=== PATIENT | male | born 1955 | race Caucasian/White ===

== ENCOUNTER 2016-07-01 10:28 | Emergency (ER) | payer SELFPAY ==
--- NOTE | 2016-07-01 12:13 | ERRECORD ---
[facility] EMERGENCY RECORD HPI ABSCESS (10:51 JROB) CHIEF COMPLAINT: Patient presents for evaluation of drainage from wound. HISTORIAN: History provided by patient, 61 year old male with history of intermittent "boil" on his upper back presents with recurrence of boil. In shower this morning he squeezed out pus, concerned about surrounding redness. LOCATION: Symptoms are localized, most severe to upper back. TIME COURSE: Gradual onset of symptoms, Symptoms are improving. ASSOCIATED WITH: No associated chills, Associated with drainage, No associated fever, No associated nausea. EXACERBATED BY: Patient's condition exacerbated by nothing. RELIEVED BY: Patient's condition relieved by squeezing. ROS (10:52 JROB) CONSTITUTIONAL: Historian denies chills, denies fever. ENT: Historian denies sore throat. CARDIOVASCULAR: Historian denies chest pain, denies syncope. RESPIRATORY: Historian denies shortness of breath. GI: Historian denies nausea, denies vomiting. MUSCULOSKELETAL: Historian denies myalgias. SKIN: Historian reports cellulitis. NEUROLOGIC: Historian denies headache, intermittent numbness in shoulders. HEMO/LYMPHATIC: Historian denies abnormal blood clotting. ALLERGIC/IMMUNOLOGIC: Historian denies frequent infections. PSYCHIATRIC: Historian denies alcohol abuse. NOTES: All systems reviewed, negative except as described above. PAST MEDICAL HISTORY MEDICAL HISTORY: Past medical history includes history of hypertension. (10:37 MCBE) MALE SURGICAL HISTORY: Surgical history of appendectomy. (10:37 MCBE) PSYCHIATRIC HISTORY: Psychiatric history includes. (10:37 MCBE) SOCIAL HISTORY: Patient drinks socially, Patient denies drug use, Patient has no smoking history. (10:37 MCBE) NOTES: Nursing records reviewed, Agree with nursing records, Medication list reviewed. (10:54 JROB) KNOWN ALLERGIES No Known Drug Allergies CURRENT MEDICATIONS No recorded medications VITAL SIGNS (10:38 MCBE) VITAL SIGNS: BP: 149/71, Pulse: 68, Resp: 20, Temp: 99.2 (Oral), Pain: 0, O2 sat: 98 on Room Air, Time: 07/01/2016 10:38. &a-1R&a+25V*p+0X*[id number]*c202B*c15G*c2P*p-0X&a-25V&a+1R Name: Johny Correa JR : 1955 M61 MedRec: [id number] AcctNum: [id number] Prepared: Damari Jul 01, 2016 11:11 by Interface Page 1 of 3 D [facility] EMERGENCY RECORD PHYSICAL EXAM (10:53 JROB) CONSTITUTIONAL: Patient afebrile, Pulse normal, Blood pressure, hypertensive, borderline, Patient alert and oriented to person, place and time. HEAD: Head exam normal, Head exam included findings of head atraumatic. EYES: Pupils equally round and reactive to light, Extraocular muscles intact. ENT: Pharynx exam normal, Mouth exam normal. NECK: Neck exam normal, no cervical adenopathy. RESPIRATORY CHEST: Breath sounds clear, No wheezing, No rales, No rhonchi. CARDIOVASCULAR: Cardiovascular assessment normal, Cardiovascular exam included findings of heart rate regular rate and rhythm, Heart sounds normal. BACK: left upper back - small abscess, drained, with mild surrounding cellulitis, no remaining purulence. UPPER EXTREMITY: Upper extremity exam normal, Upper extremity exam included findings of inspection normal, Motor strength normal, Sensation intact. LOWER EXTREMITY: Lower extremity exam normal, Lower extremity exam included findings of inspection normal, Motor strength normal, Sensation intact. NEURO: Neuro exam findings include patient oriented to person, place and time, no focal motor deficits, no focal sensory deficits. SKIN: no rash. DOCTOR NOTES (10:56 JROB) TEXT: Abscess already drained, mild surrounding cellulitis. Will d/c home with Bactrim to follow up in clinic. Patient asked about intermittent numbness in shoulders, worried that might be related to the abscess. Explained that those symptoms may bar related to intermittent nerve compression, unlikely radiculopathy. PATIENT STATUS: Patient has improved since arrival to emergency department. PATIENT PLAN: The patient will be discharged, The patient will follow up with primary care physician. PROBLEM LIST No recorded problems DIAGNOSIS DIFFERENTIAL: Based on history, exam and ancillary studies if indicated: Impression: cutaneous abscess, Impression: cellulitis, Impression: regional adenitis or lymphangitis, Diagnoses considered are not limited to those documented above. (10:58 JROB) FINAL: PRIMARY: Abscess of Upper Back. (11:00 JROB) &a-1R&a+25V*p+0X*[id number]*c202B*c15G*c2P*p-0X&a-25V&a+1R Name: Johny Correa JR : 1955 M61 MedRec: [id number] AcctNum: [id number] Prepared: Damari Jul 01, 2016 11:11 by Interface Page 2 of 3 pMD [facility] EMERGENCY RECORD PRESCRIPTION (10:58 JROB) Bactrim DS: TABLET : 800 mg-160 mg : ORAL : Quantity: 1 Unit: tab(s) Route: ORAL Schedule: 2 times a day Dispense: 1 Unit: tab(s) May substitute. Refills: No Refills . NOTES: No Refills. DISPOSITION PATIENT: Disposition Type: Discharge, Disposition: *Discharge Home. (11:00 JROB) Patient left the department. (11:04 MCBE) [place]: JROB=MD York Joseph MCBE=Eulalia Carranza &a-1R&a+25V*p+0X*[id number]*c202B*c15G*c2P*p-0X&a-25V&a+1R Name: Johny Correa : 1955 M61 MedRec: [id number] AcctNum: [id number] Prepared: Damari Jul 01, 2016 11:11 by Interface Page 3 of 3 pMD MTDD
--- NOTE | 2016-07-01 12:14 | PICIS ---
[facility] EMERGENCY RECORD TRIAGE ([place] Jul 01, 2016 10:35 MCBE) TRIAGE NOTES: boil on back. chronic. patient reports the infection comes and goes. (SatJul 01, 2016 10:35 MCBE) PATIENT: AGE: 61, GENDER: male, : Sat1955, TIME OF GREET: SatJul 01, 2016 10:29, ECODE BILLING MAP: [facility], Zip Code: [address], KG WEIGHT: 81.65, PHONE: , , , PERSON ID: [id number], PCP: Tisha Dowling /Shama. ([place] Jul 01, 2016 10:35 MCBE) NAME: Johny Correa JRSilvina (10:40) COMPLAINT: PAINFUL SPOT ON BACK. ([place] Jul 01, 2016 10:35 MCBE) ADMISSION: URGENCY: 4 Non Urgent, ADMISSION SOURCE: Home, TRANSPORT: CAR, BED: ER -04. ([place] Jul 01, 2016 10:35 MCBE) IMMUNIZATIONS: Flu vaccine up to date, Tetanus immunization up to date. (10:37 MCBE) SIRS SCORING: Heart Rate 55-109 (0), Temp range 96.8-101.1 (0), respiratory rate 12-24 (0), Mental Status altered: no (0), Infection or Suspected Infection: No. (10:37 MCBE) TRIAGE SCREENING: Patient denies suicidal ideation, Patient denies presence of domestic violence. (10:37 MCBE) PROVIDERS: TRIAGE NURSE: Eulalia Carranza. ([place] Jul 01, 2016 10:35 MCBE) KNOWN ALLERGIES No Known Drug Allergies CURRENT MEDICATIONS No recorded medications VITAL SIGNS (10:38 MCBE) VITAL SIGNS: BP: 149/71, Pulse: 68, Resp: 20, Temp: 99.2 (Oral), Pain: 0, O2 sat: 98 on Room Air, Time: 07/01/2016 10:38. NURSING ASSESSMENT: SKIN (10:35 MCBE) SKIN: Skin assessment findings include skin warm, Skin dry, Skin normal in color, Inspection findings include: No pressure ulcer to the shoulder, Inspection findings include no pressure ulcer to the elbow, Inspection findings include no pressure ulcers to the hip, Inspection findings include no pressure ulcer to the sacrum, Inspection findings include no pressure ulcer to the heel, Inspection findings include no pressure ulcer, Inspection findings include no pressure ulcer, Inspection findings include redness, to left upper back, Inspection findings include signs of infection, to left upper back, Notes: no drainage at this time. NURSING PROCEDURE: DISCHARGE NOTE (11:04 MCBE) DISCHARGE: Patient discharged to home, ambulating without assistance, driving self, accompanied by //partner, Summary of Care printed/ provided, Discharge instructions given to &a-1R&a+25V*p+0X*[id number]*c202B*c15G*c2P*p-0X&a-25V&a+1R Name: Johny Correa JR : 1955 M61 MedRec: [id number] AcctNum: [id number] Prepared: Damari Jul 01, 2016 11:17 by Interface Page 1 of 4 pMD [facility] EMERGENCY RECORD patient, Simple or moderate discharge teaching performed, by EULALIA NICOLAS, EXPLAINED DISCHARGE INSTRUCTIONS. INSTRUCTED TO RETURN IF S/S WORSEN. INSTRUCTED TO COMPLETE ALL ANITBIOTICS. INFORMED PATIENT PRESCRIPTION CAN BE FILLED AT ANY PHARMACY, Prescriptions given and instructions on side effects given, Name of prescription(s) given: bactrim, Above person(s) verbalized understanding of discharge instructions and follow-up care, Patient treated and evaluated by physician. BELONGINGS: Belongings and valuables with patient upon arrival to the Emergency Department include:, Belongings and valuables with patient at time of discharge include:, belt, boots, pants, shirt, socks, wallet, Belongings remain with patient, Valuables remain with patient, Notes: patient took bag of home medications with him home. HPI ABSCESS (10:51 JROB) CHIEF COMPLAINT: Patient presents for evaluation of drainage from wound. HISTORIAN: History provided by patient, 61 year old male with history of intermittent "boil" on his upper back presents with recurrence of boil. In shower this morning he squeezed out pus, concerned about surrounding redness. LOCATION: Symptoms are localized, most severe to upper back. TIME COURSE: Gradual onset of symptoms, Symptoms are improving. ASSOCIATED WITH: No associated chills, Associated with drainage, No associated fever, No associated nausea. EXACERBATED BY: Patient's condition exacerbated by nothing. RELIEVED BY: Patient's condition relieved by squeezing. ROS (10:52 JROB) CONSTITUTIONAL: Historian denies chills, denies fever. ENT: Historian denies sore throat. CARDIOVASCULAR: Historian denies chest pain, denies syncope. RESPIRATORY: Historian denies shortness of breath. GI: Historian denies nausea, denies vomiting. MUSCULOSKELETAL: Historian denies myalgias. SKIN: Historian reports cellulitis. NEUROLOGIC: Historian denies headache, intermittent numbness in shoulders. HEMO/LYMPHATIC: Historian denies abnormal blood clotting. ALLERGIC/IMMUNOLOGIC: Historian denies frequent infections. PSYCHIATRIC: Historian denies alcohol abuse. NOTES: All systems reviewed, negative except as described above. PAST MEDICAL HISTORY MEDICAL HISTORY: Past medical history includes history of hypertension. (10:37 MCBE) MALE SURGICAL HISTORY: Surgical history of appendectomy. (10:37 MCBE) PSYCHIATRIC HISTORY: Psychiatric history includes. &a-1R&a+25V*p+0X*p9951A*c202B*c15G*c2P*p-0X&a-25V&a+1R Name: Johny Correa : 1955 M61 MedRec: [id number] AcctNum: [id number] Prepared: Damari Jul 01, 2016 11:17 by Interface Page 2 of 4 pMD [facility] EMERGENCY RECORD (10:37 MCBE) SOCIAL HISTORY: Patient drinks socially, Patient denies drug use, Patient has no smoking history. (10:37 MCBE) NOTES: Nursing records reviewed, Agree with nursing records, Medication list reviewed. (10:54 JROB) PHYSICAL EXAM (10:53 JROB) CONSTITUTIONAL: Patient afebrile, Pulse normal, Blood pressure, hypertensive, borderline, Patient alert and oriented to person, place and time. HEAD: Head exam normal, Head exam included findings of head atraumatic. EYES: Pupils equally round and reactive to light, Extraocular muscles intact. ENT: Pharynx exam normal, Mouth exam normal. NECK: Neck exam normal, no cervical adenopathy. RESPIRATORY CHEST: Breath sounds clear, No wheezing, No rales, No rhonchi. CARDIOVASCULAR: Cardiovascular assessment normal, Cardiovascular exam included findings of heart rate regular rate and rhythm, Heart sounds normal. BACK: left upper back - small abscess, drained, with mild surrounding cellulitis, no remaining purulence. UPPER EXTREMITY: Upper extremity exam normal, Upper extremity exam included findings of inspection normal, Motor strength normal, Sensation intact. LOWER EXTREMITY: Lower extremity exam normal, Lower extremity exam included findings of inspection normal, Motor strength normal, Sensation intact. NEURO: Neuro exam findings include patient oriented to person, place and time, no focal motor deficits, no focal sensory deficits. SKIN: no rash. EVENTS TRANSFER: Triage to Emergency Emergency Room -04. ([place] Jul 01, 2016 10:35 MCBE) Removed from Emergency Emergency Room -04. (11:04 MCBE) O2SAT INTERPRETATION (10:54 JROB) O2SAT: Single pulse oximetry, Oxygen saturation 98%, on room air, Oxygen saturation interpretation: Normal, No intervention required. DOCTOR NOTES (10:56 JROB) TEXT: Abscess already drained, mild surrounding cellulitis. Will d/c home with Bactrim to follow up in clinic. Patient asked about intermittent numbness in shoulders, worried that might be related to the abscess. Explained that those symptoms may bar related to intermittent nerve compression, unlikely radiculopathy. PATIENT STATUS: Patient has improved since arrival to emergency department. &a-1R&a+25V*p+0X*n5552N*c202B*c15G*c2P*p-0X&a-25V&a+1R Name: Johny Correa : 1955 M61 MedRec: [id number] AcctNum: [id number] Prepared: Damari Jul 01, 2016 11:17 by Interface Page 3 of 4 pMD [facility] EMERGENCY RECORD PATIENT PLAN: The patient will be discharged, The patient will follow up with primary care physician. PROBLEM LIST No recorded problems DIAGNOSIS DIFFERENTIAL: Based on history, exam and ancillary studies if indicated: Impression: cutaneous abscess, Impression: cellulitis, Impression: regional adenitis or lymphangitis, Diagnoses considered are not limited to those documented above. (10:58 JROB) FINAL: PRIMARY: Abscess of Upper Back. (11:00 JROB) DISPOSITION PATIENT: Disposition Type: Discharge, Disposition: *Discharge Home. (11:00 JROB) Patient left the department. (11:04 MCBE) INSTRUCTION (11:00 JROB) DISCHARGE: ABSCESS, ABX ONLY. PHARMACY: Bactrim DS. FOLLOWUP: [facility], /[place], [facility], [address] [place] [address], [facility] [address], , Follow up with Primary Care Physician in 5 days. SPECIAL: Follow-up with your PCP We hope you feel better soon! We are always happy to take care of you and your family! Return to the ER immediately for any new, concerning, or worsening symptoms. PRESCRIPTION (10:58 JROB) Bactrim DS: TABLET : 800 mg-160 mg : ORAL : Quantity: 1 Unit: tab(s) Route: ORAL Schedule: 2 times a day Dispense: 1 Unit: tab(s) May substitute. Refills: No Refills . NOTES: No Refills. IMAGING *DISCHARGE INSTRUCTIONS RECEIPT: Image captured from scanner. (11:04 MCBE) *SUPPLY CHARGE SHEET: Image captured from scanner. (11:05 MCBE) ADMIN (11:00 JROB) DIGITAL SIGNATURE: MD York Joseph. [place]: JROB=MD York Joseph MCBE=Eulalia Carranza &a-1R&a+25V*p+0X*y9079X*c202B*c15G*c2P*p-0X&a-25V&a+1R Name: Johny Correa JR : 1955 M61 MedRec: [id number] AcctNum: [id number] Prepared: Damari Jul 01, 2016 11:17 by Interface Page 4 of 4 pMD MTDD
== END 2016-07-01 11:04 | disposition home or self-care (01) ==
LOC: NAV ERS 10:28
DX: L02.212 Cutaneous abscess of back [any part, except buttock and flank] (principal); I10 Essential (primary) hypertension; Z90.49 Acquired absence of other specified parts of digestive tract
CPT/HCPCS: 99282